=== PATIENT | female | born 2000 | race Caucasian/White ===

== ENCOUNTER 2022-01-23 14:11 | Emergency (ER) | payer OTHER ==
[2022-01-23 15:29] LABS: HEMOGLOBIN 13.4 gm/dl (12.3-15.3); RED BLOOD COUNT 4.87 M/UL (4.00-5.10); WHITE BLOOD COUNT 9.5 K/UL (4.5-11.0)
[2022-01-23 16:05] LABS: BUN/CREATININE RATIO 12 (0-10)
[2022-01-23] MEDS ORDERED: CEPHALEXIN500 M1 PO (18:33)
== END 2022-01-23 19:55 | disposition home or self-care (01) ==
LOC: ER1 14:11
PROVIDERS: Emergency Medicine
DX: O23.11 Infections of bladder in pregnancy, first trimester (principal); Z88.1 Allergy status to other antibiotic agents
CPT/HCPCS: 76801; 80053; 81001; 84702; 85025; 86900; 86901; 96361; 96374; 99284; J0696

== ENCOUNTER → 2022-02-07 | Outpatient (CLI) | payer OTHER ==
[~2022-02-07] MED LIST: CEPHALEXIN500 M1 PO; IBUPROFEN600 MG PO; PERCOCET 5-3251 EACH PO
== END ==
LOC: LAB 10:13
DX: O03.9 Complete or unspecified spontaneous abortion without complication (principal)
CPT/HCPCS: 36415; 84702

== ENCOUNTER 2022-02-08 13:08 | Emergency (ER) | payer OTHER ==
[~2022-02-08 13:08] MED LIST changes: -IBUPROFEN600 MG PO; -PERCOCET 5-3251 EACH PO
[2022-02-08 14:19] LABS: HEMOGLOBIN 13.9 gm/dl (12.3-15.3); RED BLOOD COUNT 5.02 M/UL (4.00-5.10); WHITE BLOOD COUNT 15.8 K/UL (4.5-11.0)
[2022-02-08 14:41] LABS: BUN/CREATININE RATIO 11 (0-10)
[2022-02-08] MEDS ORDERED: IBUPROFEN600 MG PO (17:50)
[2022-02-08] MEDS ORDERED: PERCOCET 5-3251 EACH PO (17:50)
== END 2022-02-08 16:10 | disposition home or self-care (01) ==
LOC: ER1 13:08
PROVIDERS: Emergency Medicine; Obstetrics & Gynecology
PROC: 0UJH4ZZ Inspection of Vagina and Cul-de-sac, Percutaneous Endoscopic Approach (ICD-10-PCS; principal; 2022-02-08 16:18)
DX: L72.0 Epidermal cyst (principal); K21.9 Gastro-esophageal reflux disease without esophagitis; D64.9 Anemia, unspecified; I49.8 Other specified cardiac arrhythmias; R00.0 Tachycardia, unspecified; Z88.1 Allergy status to other antibiotic agents
CPT/HCPCS: 80053; 84702; 85025; 86900; 86901; 96360; 99284; C1769; J1100; J1170; J2001; J2250; J2405; J2704; J2795; J3010